=== PATIENT | male | born 1940 | race Caucasian/White ===

== ENCOUNTER 2025-04-18 13:19 | Outpatient (CLI) | payer MEDICARE, OTHER | END 2025-04-18 13:20 | disposition home or self-care (01) | LOC: BURRAD 13:19 | PROVIDERS: ATTEND Physician Assistant | DX: M54.50 Low back pain, unspecified (principal); G89.29 Other chronic pain; M47.816 Spondylosis without myelopathy or radiculopathy, lumbar region; Z98.890 Other specified postprocedural states | CPT/HCPCS: 72100 ==